=== PATIENT | male | born 1990 | race Two or more races ===

== ENCOUNTER 2024-10-05 13:48 | Emergency (ER) | payer MEDICAID, SELFPAY ==
[2024-10-05 14:04] VITALS: BP 136/95; PULSE 118; RESP 18; TEMP 36.8; O2SAT 96
[2024-10-05 14:18] VITALS: BMI 35.9
--- NOTE | 2024-10-05 14:18 | EKG_ITS ---
[facility] Test Date: 2024-10-05 Pat Name: ANDREW LORENZANA Department: Room: - Gender: Male [employer]ator: : 1990 Requested By: Jalen Bravo Order Number: [id number] Reading MD: Jalen Bravo Measurements Intervals [place] Rate: 131 P: 13 IA: 139 QRS: -7 QRSD: 90 T: 31 QT: 353 QTc: 522 Interpretive Statements SINUS TACHYCARDIA ABNORMAL RHYTHM ECG Compared to ECG 09/13/2023 18:00:03 No significant changes /store/S0/[id number]
--- NOTE | 2024-10-05 14:25 | PD.EDARRY ---
ED Arrhythmia Palp. RME/HPI General Chief Complaint: Anxiety Stated Complaint: ANXIETY Time Seen by Provider: 10/05/24 13:55 Arrival date/time: 10/05/24 13:48 RME / HPI RME / HPI narrative: This section includes all my notes and documentations, including HPI, PE, and ED course. Jalen Schmid MD HPI: 34-year-old male here to be evaluated with increased anxiety. Has history of anxiety. No current medications. For the past several days, he reports frequent episodes of symptoms can include intense fear, pounding and racing heart, sweating, chills, shaking, trouble breathing, chest pain, stomach pain, nausea, numbness and tingling in the hands and feet and face, confusion, hot flashes, and feeling faint. No other complaints. ROS: All negative except as documented in HPI. Physical Exam: General: Alert and oriented. Appears anxious. Eyes: Conjunctivae and lids clear. ENT: No nasal congestion. Neck: Supple. Heart: Sinus tachycardia noted. Lungs: No respiratory distress. Good air movement. No rhonchi, wheezing, rales. Abdomen: Soft and nontender. Back: No CVA tenderness. Skin: Warm and dry. Neuro: Alert and oriented X 3. Cranial Nerves II-XII grossly intact. No peripheral motor deficits. My interpretation of the EKG is sinus tachycardia with no acute ST?T changes. At this point, diagnoses include anxiety. Treatment here included oral metoprolol 50 mg. Significant improvement noted. Recommended more care with PCP. Based on my best medical judgment, made decision no further evaluation or treatment indicated at this time. Patient understands and agrees to the discharge instructions customized and printed, see below. Discharge Instructions from Dr. Schmid printed for you: 1. Take Xanax as needed for severe anxiety. 2. Try vigorous physical exercise every single day. 3. See a private doctor on 10/06/2024 for recheck and further care. 4. Seek immediate medical care with worsening or with any concerns. Jalen Schmid MD Related Data Previous Rx's ?Medication ?Instructions ?Recorded alprazolam 0.5 mg tablet (Xanax) 0.5 mg PO BID PRN anxiety #10 tabs 10/05/24 Allergies Allergy/AdvReac Type Severity Reaction Status Date / Time No Known Allergies Allergy Verified 08/06/23 10:38 Course Quality Measures none Orders Category Date Time Status EKG (ED ONLY) *Do not use* NOW Care 10/05/24 14:18 Active EKG (ED Only) Stat Exams 10/05/24 14:18 Ordered Metoprolol Tartrate [Lopressor] Med 10/05/24 14:18 Discontinued 50 mg PO X1 ONE Vital Signs Vital signs: Vital Signs Temperature 98.2 F 10/05/24 14:04 Pulse Rate 118 H 10/05/24 14:04 Respiratory Rate 18 10/05/24 14:04 Blood Pressure 136/95 H 10/05/24 14:04 Pulse Oximetry (%) 96 10/05/24 14:04 Oxygen Delivery Method Room Air 10/05/24 14:04 Arrhythmia/Palpitations Patient data External records reviewed:: [facility] previous records Clinical information provided by:: patient Social determinants that could affect healthcare access:: substance use Patient has the following chronic illnesses:: Anxiety and substance abuse How is presenting disease/condition affected by chronic disease/condition?: exacerbated by Evaluation data The following diagnostics were reviewed and interpreted by me:: EKG tracing(s) (My interpretation of the EKG: Sinus tachycardia (131 bpm) with no ST-T changes. Jalen Schmid MD) Lab and/or radiology exams considered but not ordered:: None Interpretation Summary: Anxiety Medications / Prescriptions Medications or Prescriptions considered but not ordered:: None Medication administrations:: Medication Administration History Discontinued Medications Metoprolol Tartrate (Metoprolol Tartrate 25 Mg Tablet) 50 mg PO X1 ONE Stop: 10/05/24 14:19 Consultations Consultation(s) initiated? (list below): No Diagnosis Differential diagnosis arrhythmia/palpitations: palpitations, anxiety, sinus tachycardia, artial fibrillation, artial flutter, ventricular premature beats, supraventricular tachycardia and ventricular tachycardia Most likely diagnosis given after review of the tests above:: Anxiety Admission Indicated Admission indicated?: not indicated Explain why admission is indicated or not indicated:: Admission criteria not met Admission Request Was there a request for admission?: No Disposition Plan Disposition Plan: Discharge Discharge Attestation Discharge Attestation: The patient and all family members were given an opportunity to ask questions and understood the discharge instructions. Discharge instructions specifically effects, indications for sooner follow up or return to the emergency department, and the expected course of current diagnosis. Patient condition: Stable Discharge Plan Plan Patient Disposition: HOME (Self Care) Prescriptions/Referrals Prescriptions/Med Rec: New alprazolam [Xanax] 0.5 mg tablet 0.5 mg PO BID PRN (Reason: anxiety) Qty: 10 0RF Problem List Clinical Impression: Anxiety Patient/Caregiver Discharge Instructions Discharge Activity: activity as tolerated Education Materials: ED Anxiety Reaction, ED Panic Attack Additional Instructions: Discharge Instructions from Dr. Schmid printed for you: 1. Take Xanax as needed for severe anxiety. 2. Try vigorous physical exercise every single day. 3. See a private doctor on 10/06/2024 for recheck and further care. 4. Seek immediate medical care with worsening or with any concerns. Print Language: Amharic Stand Alone Forms: [employer] Award Info., Patient Portal Info Letter
[2024-10-05 14:47] VITALS: BP 136/95; PULSE 118
[2024-10-05] MEDS: METOPROLOL TARTRATE 25 MG TABLET 50 MG PO (14:47)
== END 2024-10-05 14:49 | disposition home or self-care (01) ==
LOC: SERX 14:55
PROVIDERS: Emergency Provider Emergency Medicine
DX: F41.9 Anxiety disorder, unspecified (principal); R00.0 Tachycardia, unspecified
CPT/HCPCS: 93005; 99283; A9270

== ENCOUNTER 2025-04-02 15:27 | Emergency (ER) | payer MEDICAID, SELFPAY ==
--- NOTE | 2025-04-02 15:34 | PD.EDANX ---
ED Anxiety RME/HPI General Chief Complaint: Anxiety Stated Complaint: ANXIETY NEEDS SUBOXONE RX Time Seen by Provider: 04/02/25 15:34 Arrival date/time: 04/02/25 15:27 Limitations: no limitations RME / HPI RME / HPI narrative: Here requeting suboxone and methadone. Has a history of opiate abuse. States he ran out of his suboxone and is feeling anxious. Recently got out of shelter 10 days ago. He states he was in shelter for 10 days. Last dose of suboxone 8 mg was 4-5 days. Last dose of methadone 50mg was 3-4 days ago. Has been on suboxone and methadone for 1 year. He states he goes to [facility] in [place], [place] normally for his refills. Patient states he has increased anxiety and palpitations. He has no nausea or vomiting. No fevers or chills. No near syncopal episodes. He states that he has a history of alcohol abuse and methamphetamine abuse. He states he has not used methamphetamine since June last year. He states he is willing to provide a urine drug screen test today. Related Data Previous Rx's ?Medication ?Instructions ?Recorded alprazolam 0.5 mg tablet (Xanax) 0.5 mg PO BID PRN anxiety #10 tabs 10/05/24 buprenorphine 8 mg-naloxone 2 mg 1 film buccal Q24H #10 ea 04/02/25 sublingual film (Suboxone) Allergies Allergy/AdvReac Type Severity Reaction Status Date / Time No Known Allergies Allergy Verified 04/02/25 15:33 Review of Systems Review of Systems Systems Reviewed: All systems reviewed, normal except as documented ED Exam General Limitations: Present no limitations General appearance: Present alert Head Head exam: Present atraumatic Eye Eye exam: Present normal appearance, PERRL and EOMI ENT ENT exam: Present normal exam, normal oropharynx and mucous membranes moist Neck Neck exam: Present normal inspection, full ROM and trachea midline Chest Chest inspection: Present normal inspection and symmetric chest wall rise Respiratory Respiratory exam: Present normal lung sounds bilaterally Cardiovascular Cardiovascular exam: Present regular rate, normal rhythm and normal heart sounds Abdominal Exam Abdominal exam: Present soft Extremities Exam Extremities exam: Present normal inspection and full ROM Back Exam Back exam: Present normal inspection and full ROM Neurological Exam Neurological exam: Present alert and oriented X3 Psychiatric Psychiatric exam: Present anxious Skin Skin exam: Present warm, dry, intact and normal color Course Quality Measures none Anxiety MDM Narrative MDM Narrative: Here requeting suboxone and methadone. Has a history of opiate abuse. States he ran out of his suboxone and is feeling anxious. Recently got out of shelter 10 days ago. He states he was in shelter for 10 days. Last dose of suboxone 8 mg was 4-5 days. Last dose of methadone 50mg was 3-4 days ago. Has been on suboxone and methadone for 1 year. He states he goes to [facility] in [place], [place] normally for his refills. Patient states he has increased anxiety and palpitations. He has no nausea or vomiting. No fevers or chills. No near syncopal episodes. He states that he has a history of alcohol abuse and methamphetamine abuse. He states he has not used methamphetamine since June last year. He states he is willing to provide a urine drug screen test today. On exam, patient is anxious appearing. Vital signs are stable. A dose of Ativan was provided here. A short-term prescription of Suboxone 8 mg #10 was provided. We had a long detailed conversation regarding the need to follow-up with the Suboxone clinic for additional refills. He agrees to go there tomorrow to discuss this. He is invited return as needed for any worsening or emergent changes. Patient data External records reviewed:: [facility] previous records Clinical information provided by:: patient Social determinants that could affect healthcare access:: mental health Patient has the following chronic illnesses:: Anxiety, opiate addiction How is presenting disease/condition affected by chronic disease/condition?: exacerbated by Evaluation data The following diagnostics were reviewed and interpreted by me:: other (specify) Lab and/or radiology exams considered but not ordered:: n/a Interpretation Summary: n/a Medications / Prescriptions Medications or Prescriptions considered but not ordered:: n/a Medication administrations:: n/a Consultations Consultation(s) initiated? (list below): No Diagnosis Differential diagnosis anxiety: panic disorder and acute anxiety Most likely diagnosis given after review of the tests above:: Anxiety, opiate addiction Admission Indicated Admission indicated?: not indicated Admission Request Was there a request for admission?: No Disposition Plan Disposition Plan: Discharge Discharge Attestation Discharge Attestation: The patient and all family members were given an opportunity to ask questions and understood the discharge instructions. Discharge instructions specifically effects, indications for sooner follow up or return to the emergency department, and the expected course of current diagnosis. Patient condition: Stable Discharge Plan Plan Patient Disposition: HOME (Self Care) Patient condition on transfer: Stable Prescriptions/Referrals Prescriptions/Med Rec: New buprenorphine-naloxone [Suboxone] 8-2 mg film 1 film buccal Q24H Qty: 10 0RF No Action alprazolam [Xanax] 0.5 mg tablet 0.5 mg PO BID PRN (Reason: anxiety) Qty: 10 0RF Problem List Clinical Impression: Medication refill, Opiate addiction Patient/Caregiver Discharge Instructions Education Materials: Substance Abuse and Traumatic ..., Treating Drug Abuse and Addiction Additional Instructions: - Use the provided medication as prescribed. - It is important that he follow-up with your clinic tomorrow to consider additional refills. - You may return to the emergency room anytime for any worsening or emergent changes. Print Language: Citizen Of [place] Stand Alone Forms: [employer] Award Info., Patient Portal Info Letter
[2025-04-02 15:39] VITALS: BP 162/89; PULSE 98; RESP 20; TEMP 36.7; O2SAT 98; BMI 37.3
== END 2025-04-02 16:05 | disposition home or self-care (01) ==
PROVIDERS: Emergency Provider Emergency Medicine
DX: Z76.0 Encounter for issue of repeat prescription (principal); F11.20 Opioid dependence, uncomplicated; F41.9 Anxiety disorder, unspecified
CPT/HCPCS: 99282; A9270

== ENCOUNTER 2025-04-08 23:41 | Emergency (ER) | payer MEDICAID, SELFPAY ==
[2025-04-08 23:42] VITALS: BMI 37.3
[2025-04-09 00:49] VITALS: BP 150/94; PULSE 108; RESP 18; TEMP 37.2; O2SAT 97
--- NOTE | 2025-04-09 02:38 | EDNOTE_ITS ---
ED Anxiety RME/HPI General Chief Complaint: Anxiety Stated Complaint: ANXIOUS Time Seen by Provider: 04/09/25 02:01 Arrival date/time: 04/08/25 23:41 RME / HPI RME / HPI narrative: 34-year-old male presents to the ED with a complaint of anxiety. He states he has a history of anxiety and was seen here 1 week ago and given a dose of Ativan. He denies any suicidal or homicidal ideation. He states he is worried about everything including driving, dying, getting in an accident, etc. He denies any recent illness with fever, chills, cough, upper respiratory symptoms, nausea or vomiting, diarrhea or abdominal pain. Related Data Previous Rx's ?Medication ?Instructions ?Recorded alprazolam 0.5 mg tablet (Xanax) 0.5 mg PO BID PRN anx iety #10 tabs 10/05/24 buprenorphine 8 mg-naloxone 2 mg 1 film buccal Q24H #1 0 ea 04/02/25 sublingual film (Suboxone) Allergies Allergy/AdvReac Type Severity Reaction Status Date / Time No Known Allergies Allergy Verified 04/08/25 23:42 Review of Systems Review of Systems Systems Reviewed: All systems reviewed, normal except as documented Past Medical History Past Medical History CARDIAC: Negative Congestive Heart Failure RESPIRATORY: Negative Chronic Obstructive Pulmonary Disease (COPD) GENITOURINARY: Negative Renal Disease ENDOCRINE: Negative Diabetes Mellitus Type 1 or Diabetes Mellitus Type 2 PSYCHO/SOCIAL: Positive Anxiety Social History SMOKING STATUS: Current every day smoker SUBSTANCE USE: marijuana and methamphetamine ED Exam Narrative Physical exam: Alert and oriented, very anxious appearing 34-year-old male, moderate acute distress. Lungs are clear, mild tachycardia noted. Abdomen is soft and nontender. Moves all extremities well. Course Vital Signs Vital signs: Vital Signs Temperature 98.9 F 04/09/25 00:49 Pulse Rate 108 H 04/09/25 00:49 Respiratory Rate 18 04/09/25 00:49 Blood Pressure 150/94 H 04/09/25 00:49 Pulse Oximetry (%) 97 04/09/25 00:49 Oxygen Delivery Method Room Air 04/09/25 00:49 Discharge Plan Plan Patient Disposition: HOME (Self Care) Discharge Disposition comment: Stable Prescriptions/Referrals Prescriptions/Med Rec: No Action alprazolam [Xanax] 0.5 mg tablet 0.5 mg PO BID PRN (Reason: anxiety) Qty: 10 0RF buprenorphine-naloxone [Suboxone] 8-2 mg film 1 film buccal Q24H Qty: 10 0RF Referrals: No Primary/Family,Physician [Primary Care Provider] - In 1 week Problem List Clinical Impression: Acute anxiety Patient/Caregiver Discharge Instructions Education Materials: Treating Anxiety Disorders ..., ED Anxiety Reaction Additional Instructions: Follow-up with your primary care physician in 24 to 48 hours. Return to the ED for any new or worsening symptoms. Print Language: Vietnamese Stand Alone Forms: [employer] Award Info., Patient Portal Info Letter PA/ACUPUNCTURE PHYSICIAN Supervising Physician PA/ACUPUNCTURE PHYSICIAN Supervising Physician: Dr. Her
[2025-04-09 03:39] VITALS: RESP 16
== END 2025-04-09 03:40 | disposition home or self-care (01) ==
PROVIDERS: Emergency Provider Emergency Medicine
DX: F41.9 Anxiety disorder, unspecified (principal)
CPT/HCPCS: 99283; A9270

== ENCOUNTER 2025-04-11 20:54 | Emergency (ER) | payer MEDICAID, SELFPAY ==
[2025-04-11 20:55] VITALS: BMI 37.3
[2025-04-11 21:33] VITALS: BP 141/95; PULSE 118; RESP 18; TEMP 36.6; O2SAT 95
--- NOTE | 2025-04-11 21:43 | EDNOTE_ITS ---
ED Anxiety RME/HPI General Chief Complaint: Anxiety Stated Complaint: ANXIOUS Time Seen by Provider: 04/11/25 21:17 Source: patient Arrival date/time: 04/11/25 20:54 This is a case of 34-year-old male history of multiple visit in the ER for anxiety came in in the emergency room due to anxiety attack today patient states that he was sitting at home felt anxious thus decided to sought consult here in the emergency room denies any suicidal homicidal ideation denies depression denies any hallucination Limitations: no limitations Related Data Previous Rx's ?Medication ?Instructions ?Recorded alprazolam 0.5 mg tablet (Xanax) 0.5 mg PO BID PRN anx iety #10 tabs 10/05/24 buprenorphine 8 mg-naloxone 2 mg 1 film buccal Q24H #1 0 ea 04/02/25 sublingual film (Suboxone) hydroxyzine pamoate 25 mg capsule 25 mg PO BID PRN As needed for 04/11/25 anxiety #10 caps Allergies Allergy/AdvReac Type Severity Reaction Status Date / Time No Known Allergies Allergy Verified 04/11/25 20:55 Review of Systems Review of Systems Systems Reviewed: All systems reviewed, normal except as documented Constitutional Constitutional: Reports system reviewed and no additional complaints, except as documented and Reports as per HPI Cardiovascular Cardiovascular: Reports system reviewed and no additional complaints, except as documented, Reports as per HPI, Denies chest pain and Denies dyspnea Respiratory Respiratory: Reports system reviewed and no additional complaints, except as documented, Reports as per HPI and Denies dyspnea Gastrointestinal Gastrointestinal: Reports system reviewed and no additional complaints, except as documented and Reports as per HPI Genitourinary Genitourinary: Denies change in libido Musculoskeletal Musculoskeletal: Reports system reviewed and no additional complaints, except as documented and Reports as per HPI Neurologic Neurologic: Reports system reviewed and no additional complaints, except as documented, Reports as per HPI, Denies behavioral changes, Denies confusion and Denies memory loss Psychiatric Psychiatric: Reports system reviewed and no additional complaints, except as documented, Reports as per HPI, Denies abnormal sleep pattern, Denies anhedonia, Reports anxiety, Denies auditory hallucinations, Denies behavioral changes, Denies change in appetite, Denies change in libido, Denies confusion, Denies depression, Denies difficulty concentrating, Denies hallucinations, Denies homicidal ideation, Denies hopelessness, Denies irritability, Denies memory loss, Denies mood swings, Reports panic attacks, Denies paranoia, Denies suicidal ideation, Denies tactile hallucinations and Denies visual hallucinations Endocrine Endocrine: Denies change in libido Past Medical History Past Medical History CARDIAC: Negative Congestive Heart Failure RESPIRATORY: Negative Chronic Obstructive Pulmonary Disease (COPD) GENITOURINARY: Negative Renal Disease ENDOCRINE: Negative Diabetes Mellitus Type 1 or Diabetes Mellitus Type 2 PSYCHO/SOCIAL: Positive Anxiety Social History SMOKING STATUS: Current every day smoker SUBSTANCE USE: marijuana and methamphetamine ED Exam General Limitations: Present no limitations General appearance: Present alert, in no apparent distress and other (Patient is awake alert oriented not in distress nontoxic looking well-hydrated well- nourished) Head Head exam: Present atraumatic, normocephalic and normal inspection Eye Eye exam: Present normal appearance, PERRL and EOMI ENT ENT exam: Present normal exam, normal oropharynx and mucous membranes moist Neck Neck exam: Present normal inspection, full ROM and trachea midline; Absent tenderness or meningismus Chest Chest inspection: Present normal inspection and symmetric chest wall rise Respiratory Respiratory exam: Present normal lung sounds bilaterally; Absent respiratory distress, wheezes, stridor, accessory muscle use or prolonged expiratory phase Cardiovascular Cardiovascular exam: Present regular rate, normal rhythm and normal heart sounds; Absent bradycardia, tachycardia, irregular rhythm, systolic murmur or diastolic murmur Abdominal Exam Abdominal exam: Present soft; Absent distention, tenderness, guarding, rebound, normal bowel sounds, diminished bowel sounds, hyperactive bowel sounds or hypoactive bowel sounds Extremities Exam Extremities exam: Present normal inspection and full ROM Back Exam Back exam: Present normal inspection and full ROM Neurological Exam Neurological exam: Present alert, oriented X3, CN II-XII intact, normal gait and reflexes normal; Absent motor sensory deficit Psychiatric Psychiatric exam: Present normal affect, normal mood and anxious; Absent depressed, agitated, flat affect, manic, homicidal ideation or suicidal ideation Skin Skin exam: Present warm, dry, intact and normal color Course Quality Measures none Orders Category Date Time Status LORazepam [Ativan] Med 04/11/25 21:41 Once 1 mg PO X1 ONE Vital Signs Vital signs: Vital Signs Temperature 97.8 F 04/11/25 21:33 Pulse Rate 118 H 04/11/25 21:33 Respiratory Rate 18 04/11/25 21:33 Blood Pressure 141/95 H 04/11/25 21:33 Pulse Oximetry (%) 95 04/11/25 21:33 Oxygen Delivery Method Room Air 04/11/25 21:33 patient is afebrile not tachycardic not tachypneic blood pressure stable not hypoxic oxygen saturation is 95% in room air I rechecked the heart rate of the patient after giving Ativan and noted to be 95 Anxiety MDM Narrative MDM Narrative: This is a case of 34-year-old male history of multiple visit in the ER for anxiety came in in the emergency room due to anxiety attack today patient states that he was sitting at home felt anxious thus decided to sought consult here in the emergency room denies any suicidal homicidal ideation denies depression denies any hallucination physical examination patient is awake alert oriented not in distress not toxic looking well-groomed with good eye contact lungs sound is clear no crackles no rales no retraction no stridor heart normal rate regular rhythm no murmur neurological exam is normal and unremarkable psych exam showed mild anxiety no depression no suicidal no homicidal ideation at this point patient do not need any blood test or imaging patient only symptoms with anxiety no chest pain no shortness of breath or palpitation patient vital signs stable not tachycardic not tachypneic not hypoxic and patient also do not have any suicidal nor homicidal ideation Ativan was given here in the emergency room after 30 minutes patient was reassessed no anxiety heart rate went down to 95 I have a long discussion with this patient patient will follow-up with PCP to be referred to psychiatry psychologist for the treatment of anxiety patient was prescribed with Vistaril for anxiety she was advised for any recurrence persistent worsening symptoms he needs to return in the emergency room immediately or call [phone] Patient was discharged with comfortable condition walking with stable gait. Patient verbalized no further complains explained diagnosis and answered patient question. Patient is comfortable with the proposed management plan including the need to follow up with his/her primary care physician and any specialist if applicable Discussed patient for any urgent condition or worsening sx, He/She needed to go to emergency room immediately or call 911. Patient acknowledge the responsibility to follow up as instructed and to monitor her/his symptoms. For any persistence of the symptoms for more than 3-5 days return precaution advised. Discussed the result of the test and was given printed discharge instruction Patient data External records reviewed:: [facility] previous records Clinical information provided by:: patient Social determinants that could affect healthcare access:: none Patient has the following chronic illnesses:: None How is presenting disease/condition affected by chronic disease/condition?: no chronic disease Evaluation data The following diagnostics were reviewed and interpreted by me:: other (specify) Lab and/or radiology exams considered but not ordered:: None Interpretation Summary: None Medications / Prescriptions Medications or Prescriptions considered but not ordered:: Given Medication administrations:: Medication Administration History Lorazepam (Lorazepam 0.5 Mg Tablet) 1 mg PO X1 ONE Stop: 04/11/25 21:42 Given Consultations Consultation(s) initiated? (list below): No Diagnosis Differential diagnosis anxiety: panic disorder and acute anxiety Most likely diagnosis given after review of the tests above:: Anxiety Admission Indicated Admission indicated?: not indicated Explain why admission is indicated or not indicated:: Not indicated Admission Request Was there a request for admission?: No Admission Attestation Admission request attestation: Not indicated Disposition Plan Disposition Plan: Discharge Discharge Attestation Discharge Attestation: The patient and all family members were given an opportunity to ask questions and understood the discharge instructions. Discharge instructions specifically effects, indications for sooner follow up or return to the emergency department, and the expected course of current diagnosis. Patient condition: Stable Discharge Plan Plan Patient Disposition: HOME (Self Care) Patient condition on transfer: Stable Prescriptions/Referrals Prescriptions/Med Rec: New hydroxyzine pamoate 25 mg capsule 25 mg PO BID PRN (Reason: As needed for anxiety) Qty: 10 0RF No Action alprazolam [Xanax] 0.5 mg tablet 0.5 mg PO BID PRN (Reason: anxiety) Qty: 10 0RF buprenorphine-naloxone [Suboxone] 8-2 mg film 1 film buccal Q24H Qty: 10 0RF Problem List Clinical Impression: Anxiety Patient/Caregiver Discharge Instructions Education Materials: ED Anxiety Reaction Additional Instructions: Follow-up with your primary care physician in 2 days for reevaluation and to be referred to psychiatry psychologist for anxiety recurrence persistence or worsening symptoms or any emergent concern call 911 or go to the nearest emergency room Print Language: Persian Stand Alone Forms: Viridiana Award Info., Patient Portal Info Letter PA/DIMPLE Supervising Physician ABEBA/DIMPLE Supervising Physician: DR Maloney
[2025-04-11 23:10] VITALS: RESP 16
== END 2025-04-11 23:10 | disposition home or self-care (01) ==
LOC: SERX 22:06
PROVIDERS: Emergency Provider Emergency Medicine
DX: F41.9 Anxiety disorder, unspecified (principal)
CPT/HCPCS: 99283; A9270

== ENCOUNTER 2025-06-06 09:37 | Emergency (ER) | payer MEDICAID, SELFPAY ==
[2025-06-06 09:52] VITALS: BP 154/90; PULSE 101; RESP 18; TEMP 36.8; O2SAT 96
--- NOTE | 2025-06-06 10:07 | EDNOTE_ITS ---
ED Anxiety RME/HPI General Chief Complaint: Anxiety Stated Complaint: ANXIETY Time Seen by Provider: 06/06/25 09:50 Source: patient Arrival date/time: 06/06/25 09:37 34-year-old male with a history of anxiety presents to the emergency room with a chief complaint of anxiety attack that woke him up this morning. Mode of arrival: ambulatory Limitations: no limitations Related Data Previous Rx's ?Medication ?Instructions ?Recorded alprazolam 0.5 mg tablet (Xanax) 0.5 mg PO BID PRN anx iety #10 tabs 10/05/24 buprenorphine 8 mg-naloxone 2 mg 1 film buccal Q24H #1 0 ea 04/02/25 sublingual film (Suboxone) hydroxyzine pamoate 25 mg capsule 25 mg PO BID PRN As needed for 04/11/25 anxiety #10 caps Allergies Allergy/AdvReac Type Severity Reaction Status Date / Time No Known Allergies Allergy Verified 06/06/25 09:39 Review of Systems Review of Systems Systems Reviewed: All systems reviewed, normal except as documented Constitutional Constitutional: Reports system reviewed and no additional complaints, except as documented, Denies fatigue, Denies fever(s), Denies headache(s) and Denies weakness Eyes Eyes: Reports system reviewed and no additional complaints, except as documented, Denies blurry vision and Denies change in vision ENT Ears, Nose, Mouth, and Throat: Reports system reviewed and no additional complaints, except as documented, Denies otalgia, Denies headache(s), Denies nasal congestion, Denies throat swelling and Denies vertigo Cardiovascular Cardiovascular: Reports system reviewed and no additional complaints, except as documented, Denies chest pain, Denies dyspnea and Denies dyspnea on exertion Respiratory Respiratory: Reports system reviewed and no additional complaints, except as documented, Denies chest congestion, Denies cough, Denies dyspnea, Denies dyspnea on exertion and Denies wheezing Gastrointestinal Gastrointestinal: Reports system reviewed and no additional complaints, except as documented, Denies abdominal pain, Denies cramping, Denies nausea and Denies vomiting Genitourinary Genitourinary: Reports system reviewed and no additional complaints, except as documented, Denies dysuria and Denies hematuria Musculoskeletal Musculoskeletal: Reports system reviewed and no additional complaints, except as documented and Denies back pain Integumentary/Breasts Skin/Breast: Reports system reviewed and no additional complaints, except as documented and Denies wounds Neurologic Neurologic: Reports system reviewed and no additional complaints, except as documented, Denies confusion, Denies headache(s), Denies lack of coordination, Denies vertigo and Denies weakness Psychiatric Psychiatric: Reports system reviewed and no additional complaints, except as documented, Reports anxiety, Denies confusion, Denies depression, Denies paranoia, Denies suicidal ideation and Denies tactile hallucinations Endocrine Endocrine: Reports system reviewed and no additional complaints, except as documented and Denies fatigue Hematologic/Lymphatic Hematologic/Lymphatic: Reports system reviewed and no additional complaints, except as documented and Denies lymphadenopathy Allergic/Immunologic Allergic/Immunologic: Reports system reviewed and no additional complaints, except as documented, Denies throat swelling, Denies urticaria and Denies wheezing Past Medical History Past Medical History CARDIAC: Negative Congestive Heart Failure RESPIRATORY: Negative Chronic Obstructive Pulmonary Disease (COPD) GENITOURINARY: Negative Renal Disease ENDOCRINE: Negative Diabetes Mellitus Type 1 or Diabetes Mellitus Type 2 PSYCHO/SOCIAL: Positive Anxiety Social History SMOKING STATUS: Current every day smoker SUBSTANCE USE: marijuana and methamphetamine ED Exam General Limitations: Present no limitations General appearance: Present alert and in no apparent distress Head Head exam: Present atraumatic Eye Eye exam: Present normal appearance, PERRL and EOMI ENT ENT exam: Present normal exam, normal oropharynx and mucous membranes moist Neck Neck exam: Present normal inspection, full ROM and trachea midline Chest Chest inspection: Present normal inspection and symmetric chest wall rise Respiratory Respiratory exam: Present normal lung sounds bilaterally Cardiovascular Cardiovascular exam: Present regular rate, normal rhythm and normal heart sounds Abdominal Exam Abdominal exam: Present soft and normal bowel sounds Extremities Exam Extremities exam: Present normal inspection and full ROM Back Exam Back exam: Present normal inspection and full ROM Neurological Exam Neurological exam: Present alert, oriented X3 and CN II-XII intact Psychiatric Psychiatric exam: Present normal affect and normal mood Skin Skin exam: Present warm, dry, intact and normal color Course Quality Measures none Orders Category Date Time Status ALPRazoLAM [Xanax] Med 06/06/25 09:56 Discontinued 0.5 mg PO X1 ONE Vital Signs Vital signs: Vital Signs Temperature 98.2 F 06/06/25 09:52 Pulse Rate 101 H 06/06/25 09:52 Respiratory Rate 18 06/06/25 09:52 Blood Pressure 154/90 H 06/06/25 09:52 Pulse Oximetry (%) 96 06/06/25 09:52 Oxygen Delivery Method Room Air 06/06/25 09:52 Anxiety MDM Narrative MDM Narrative: 34-year-old male with a history of anxiety presents to the emergency room with a chief complaint of anxiety attack that woke him up this morning. Patient is hemodynamically stable and in no apparent distress. The patient denies any chest pain any palpitations and states all her symptoms have resolved. Patient states he wants a doctor's note as he missed his appointment with his lead security officer this morning at 9 AM. Physical examination shows clear bilateral lung sounds. Patient has a strong and regular rhythm S1 and S2 noted. Patient states he does not have any suicidal ideation or homicidal ideation. Patient has an appointment with his primary care provider today at 12 where they will discuss starting him on medication for his anxiety. Patient was discharged and educated to follow-up with primary care provider in the next 24 to 48 hours and return to the emergency room for any evidence of worsening signs or symptoms Patient data External records reviewed:: [facility] previous records Clinical information provided by:: patient Social determinants that could affect healthcare access:: none Patient has the following chronic illnesses:: Anxiety How is presenting disease/condition affected by chronic disease/condition?: exacerbated by Evaluation data The following diagnostics were reviewed and interpreted by me:: lab results and radiology exam(s) Lab and/or radiology exams considered but not ordered:: Labs and radiology exams considered and ordered Interpretation Summary: N/A Medications / Prescriptions Medications or Prescriptions considered but not ordered:: Medication given Medication administrations:: Medication Administration History Discontinued Medications Alprazolam (Alprazolam 0.25 Mg Tablet) 0.5 mg PO X1 ONE Stop: 06/06/25 09:57 Consultations Consultation(s) initiated? (list below): No Diagnosis Differential diagnosis anxiety: hyperventilation, panic disorder and acute anxiety Most likely diagnosis given after review of the tests above:: Acute anxiety Admission Indicated Admission indicated?: not indicated Admission Request Was there a request for admission?: No Disposition Plan Disposition Plan: Discharge Discharge Attestation Discharge Attestation: The patient and all family members were given an opportunity to ask questions and understood the discharge instructions. Discharge instructions specifically effects, indications for sooner follow up or return to the emergency department, and the expected course of current diagnosis. Patient condition: Stable Discharge Plan Plan Patient Disposition: HOME (Self Care) Discharge Disposition comment: Stable Prescriptions/Referrals Prescriptions/Med Rec: No Action alprazolam [Xanax] 0.5 mg tablet 0.5 mg PO BID PRN (Reason: anxiety) Qty: 10 0RF hydroxyzine pamoate 25 mg capsule 25 mg PO BID PRN (Reason: As needed for anxiety) Qty: 10 0RF buprenorphine-naloxone [Suboxone] 8-2 mg film 1 film buccal Q24H Qty: 10 0RF Problem List Clinical Impression: Acute anxiety Patient/Caregiver Discharge Instructions Education Materials: ED Anxiety Reaction Additional Instructions: Please follow-up with your primary care provider today at 12 For any evidence of worsening signs or symptoms return emergency room immediately Print Language: Nepalese Stand Alone Forms: Viridiana Award Info., Work/School Release, Patient Portal Info Letter PA/TRIPE FINISHER Supervising Physician PA/TRIPE FINISHER Supervising Physician: Dr. Elise
== END 2025-06-06 10:44 | disposition home or self-care (01) ==
LOC: SERX 10:18
PROVIDERS: Emergency Provider Nurse Practitioner Family; PCP Family Medicine
DX: F41.9 Anxiety disorder, unspecified (principal)
CPT/HCPCS: 99282; A9270